=== PATIENT | female | born 1995 | race Caucasian/White ===

== ENCOUNTER 2017-05-10 10:49 | Inpatient (IN) | payer MEDICAID, OTHER ==
[~2017-05-10] VITALS: Ht 170.2 cm; Wt 106.9 kg
[2017-05-10] MEDS ORDERED: ARIP10TA8 PO (11:04)
[2017-05-10] MEDS ORDERED: birth control PO (11:04)
[2017-05-10] MEDS ORDERED: SPIR50 PO (11:04)
[2017-05-10 11:25] LABS: BASOPHILS % (AUTO) 0.8 % (0.0-2.0); EOSINOPHILS % (AUTO) 1.8 % (1.0-6.0); HEMATOCRIT 38.3 % (36-46); HEMOGLOBIN 12.8 g/dL (12.0-16.0); LYMPHOCYTES # (AUTO) 2.6 K/uL (1.0-4.8); LYMPHOCYTES % (AUTO) 28.4 % (22.0-44.0); MEAN CORPUSCULAR HGB CONC 33.4 G/dL (31.0-37.0); MEAN CORPUSCULAR VOLUME 81 fL (80-100); MONOCYTES # (AUTO) 0.6 K/uL (0.1-1.0); NEUTROPHILS # (AUTO) 5.8 K/uL (1.8-7.7); PLATELET COUNT (AUTO) 313 K/uL (150-450); RED BLOOD CELL COUNT(AUTO) 4.74 MIL/uL (4.00-5.20); RED CELL DISTRIBUTION WIDTH 14.2 % (11.5-14.5)
[2017-05-10 11:35] LABS: ANION GAP 7 mmol/L (8-16); CALCIUM, TOTAL 9.3 mg/dL (8.8-10.5); CARBON DIOXIDE 29 mmol/L (22-29); CHLORIDE 102 mmol/L (98-107); CREATININE 0.86 mg/dL (0.60-1.30); GLOMERULAR FILTR. RATE CALC > 60 mL/min (>60); GLUCOSE,RANDOM 128 mg/dL (70-110); POTASSIUM 3.7 mmol/L (3.5-5.1); SODIUM SERUM 138 mmol/L (136-145); UREA NITROGEN, BLOOD 16 mg/dL (7-18)
[2017-05-10 11:40] LABS: ALANINE AMINOTRANSFERASE 27 U/L (12-78); ALBUMIN 3.6 g/dL (3.4-5.0); ALKALINE PHOSPHATASE 145 U/L (46-116); ASPARTATE AMINOTRANSFERASE 20 U/L (15-37); BILIRUBIN,TOTAL 0.2 mg/dL (0.1-1.0); TOTAL PROTEIN, SERUM 8.2 g/dL (6.4-8.2)
[2017-05-10 11:42] LABS: ACETAMINOPHEN < 2 mcg/mL (10-30); SALICYLATE 1.4 mg/dL (2.8-20.0)
[2017-05-10] MEDS ORDERED: LORazepam 2 MG TABLET PO PRN (11:45)
[2017-05-10] MEDS ORDERED: HALOPERIDOL 5 MG TABLET PO PRN (11:45)
[2017-05-10] MEDS ORDERED: ZOLPIDEM TARTRATE 10 MG TABLET PO PRN (11:45)
[2017-05-10 15:17] VITALS: BP 128/82
[2017-05-10 15:36] LABS: HCG,QUAL RESULT NEGATIVE (NEGATIVE)
[2017-05-10 15:39] LABS: AMPHET/METH SCREEN,URINE NEGATIVE (NEGATIVE); BARBITURATE SCREEN, URINE NEGATIVE (NEGATIVE); BENZODIAZEPINES SCREEN,URINE NEGATIVE (NEGATIVE); CANNABINOID SCREEN,URINE NEGATIVE (NEGATIVE); COCAINE SCREEN,URINE NEGATIVE (NEGATIVE); METHADONE SCREEN, URINE NEGATIVE (NEGATIVE); OPIATE SCREEN,URINE NEGATIVE (NEGATIVE)
[2017-05-10 15:45] LABS: PHENCYCLIDINE SCREEN,URINE NEGATIVE (NEGATIVE)
[2017-05-10] MEDS ORDERED: INFLUENZA VIRUS VACCINE QVS 2017-18 (3YR+)/PF 60 MCG/0.5 ML SYRINGE IM ONE (16:30)
[2017-05-10 21:30] VITALS: BP 132/86
[2017-05-11 01:14] VITALS: BP 117/69
[2017-05-11 08:31] VITALS: BP 121/85
[2017-05-11 08:45] LABS: HEMOGLOBIN A1C 5.4 % (4.5-6.2)
[2017-05-11 08:53] LABS: CHOL/HDL RATIO 3.6 (3.9-5.7)
[2017-05-11] MEDS: SPIRONOLACTONE 50 MG TABLET PO SCH (09:29)
[2017-05-11 10:00] LABS: THYROID STIMULATING HORMONE 3.13 uIU/mL (0.36-3.74)
[2017-05-11] MEDS ORDERED: ALBUTEROL SULFATE HFA 90 MCG/PUFF 8 GM INHALER IH PRN (15:45)
[2017-05-11] MEDS ORDERED: ACETAMINOPHEN 325 MG TABLET PO PRN (15:45)
[2017-05-11 16:09] VITALS: BP 119/69
[2017-05-12 01:09] VITALS: BP 117/67
[2017-05-12 08:16] VITALS: BP 125/83
[2017-05-12] MEDS ORDERED: ARIPiprazole 10 MG TABLET PO SCH (09:00)
[2017-05-12] MEDS ORDERED: CITALOPRAM HYDROBROMIDE 20 MG TABLET PO SCH (09:00)
[2017-05-12] MEDS: SPIRONOLACTONE 50 MG TABLET PO SCH (09:06)
[2017-05-12] MEDS ORDERED: CITA20TA9 PO (09:21)
== END 2017-05-12 10:25 | disposition home or self-care (01) | DRG 753 ==
LOC: EMS 10:50 → AHU 13:40 → B2S 20:25
PROVIDERS: ADMIT Psychiatry & Neurology Psychiatry; ATTEND Psychiatry & Neurology Psychiatry
PROC: 3E0234Z Introduction of Serum, Toxoid and Vaccine into Muscle, Percutaneous Approach (ICD-10-PCS; principal; 2017-05-10)
DX: F31.9 Bipolar disorder, unspecified (principal); R45.851 Suicidal ideations; E28.2 Polycystic ovarian syndrome; E78.5 Hyperlipidemia, unspecified; F12.90 Cannabis use, unspecified, uncomplicated; J45.909 Unspecified asthma, uncomplicated; R73.9 Hyperglycemia, unspecified; F41.9 Anxiety disorder, unspecified; Z88.5 Allergy status to narcotic agent; Z88.6 Allergy status to analgesic agent; Z79.899 Other long term (current) drug therapy; Z91.5 Personal history of self-harm; Z23 Encounter for immunization
CPT/HCPCS: 83036; 84439; 84443; 99285; G0480; G0481